=== PATIENT | female | born 1945 ===

== ENCOUNTER 2020-09-01 11:14 | Observation (INO) ==
[~2020-09-01 11:14] MED LIST: Buffered Lidocaine 1% SYRIN 1 ml INTRADERM ONE; Dexamethasone IV 4 MG/ML VIAL 1 ml VIAL ONE; Ketamine HCL 50 mg/ml 10 ml VIAL (500 MG) ONE; Lactated Ringers 1000 ml BAG 1,000 ML IV SCH; Lidocaine 2% PF 5 ML VIAL ONE; Midazolam 2 mg/2 ml VIAL 1 mg/ml 2 ml VIAL (2 mg) ONE; Ondansetron 4 mg VIAL 2 MG/ML 2 ml VIAL ONE; fentaNYL 100 mcg/2 ml 50 MCG/ML VIAL ONE
[2020-09-01] MEDS ORDERED: Lidocaine 1% MPF 5 ML VIAL ONE ×2 (11:22→12:11)
[2020-09-01] MEDS ORDERED: Buffered Lidocaine 1% SYRIN 1 ml INTRADERM ONE (11:38)
[2020-09-01] MEDS ORDERED: Clindamycin 900 MG/D5W BAG 900 MG/50 ML BAG IVPB ONE (11:38)
[2020-09-01] MEDS ORDERED: Propofol 10 MG/ML 20 ML BTL ONE ×4 (12:03→16:02)
[2020-09-01] MEDS ORDERED: Lactulose 30 ml UDC PO PRN (12:20)
[2020-09-01] MEDS ORDERED: diPHENhydraMINE 25 mg TAB PO PRN (12:20)
[2020-09-01] MEDS ORDERED: Morphine 2 MG/ML SYRINGE IV PRN (12:20)
[2020-09-01] MEDS ORDERED: diPHENhydraMINE IV 50 MG/ML 1 ml VIAL (BENADRYL) IV PRN (12:20)
[2020-09-01] MEDS ORDERED: Ondansetron 4 mg VIAL 2 MG/ML 2 ml VIAL IV PRN ×2 (12:20→15:21)
[2020-09-01] MEDS ORDERED: Ondansetron ODT 4 mg TAB 4 MG TAB PO PRN (12:20)
[2020-09-01 12:25] LABS: INR 0.98 (0.82-1.09)
[2020-09-01] MEDS ORDERED: Lactated Ringers 1000 ml BAG 1,000 ML IV SCH (13:00)
[2020-09-01] MEDS ORDERED: Dexamethasone IV 4 MG/ML VIAL 1 ml VIAL ONE (13:05)
[2020-09-01] MEDS ORDERED: Bupivacaine 0.5% SDV PF 30ML VIAL ONE (13:06)
[2020-09-01] MEDS ORDERED: Naloxone 0.4 mg VIAL 0.4 mg/ml 1 ml VIAL IV PRN (15:21)
[2020-09-01] MEDS ORDERED: fentaNYL 100 mcg/2 ml 50 MCG/ML VIAL ONE (17:52)
[2020-09-01] MEDS: fentaNYL 100 mcg/2 ml 50 MCG/ML VIAL IV PRN ×3 (17:54→18:11)
[2020-09-01] MEDS ORDERED: PTO: Progesterone 100 mg CAP (NF) PO SCH (18:00)
[2020-09-01] MEDS ORDERED: Enoxaparin 40 MG/0.4 ML SYR SUBCUT SCH (21:00)
[2020-09-01] MEDS ORDERED: Clindamycin 600 MG/D5W BAG 600 MG/50 ML BAG IV SCH (22:00)
[2020-09-01] MEDS: Enoxaparin 40 MG/0.4 ML SYR SUBCUT SCH (22:11)
[2020-09-01] MEDS: CMCS: Estradiol 1 mg TAB (NF) PO SCH (23:02)
[2020-09-01] MEDS: PTO: Progesterone 100 mg CAP (NF) PO SCH (23:06)
[2020-09-01] MEDS: Vancomycin 1000 MG in NS 0.9% 250 ML IVPB SCH (23:07)
[2020-09-01] MEDS: Mometasone/Formoter 200/5 MDI INH SCH (23:47)
[2020-09-02] MEDS ORDERED: Polyethylene Glycol 3350 17 GM PACKET PO PRN (00:01)
[2020-09-02 06:36] LABS: Hematocrit 38 % (35-47); Hemoglobin 13.1 g/dL (12.0-16.0); Mean Platelet Volume 8.1 fL (7.4-10.4); Platelet Count 216 10^3/uL (150-450)
[2020-09-02 06:54] LABS: BUN/Creatinine Ratio 19.7 (8-20); Calcium 9.4 mg/dL (8.6-10.3); EGFR African American 89.3 (>60); EGFR Non-African American 73.8 (>60); Potassium 4.8 mmol/L (3.5-5.0)
[2020-09-02] MEDS: Mometasone/Formoter 200/5 MDI INH SCH (07:08)
[2020-09-02] MEDS: Vitamin THERAPEUTIC TAB PO SCH (07:47)
[2020-09-02] MEDS: Enoxaparin 40 MG/0.4 ML SYR SUBCUT SCH ×2 (07:59→20:42)
[2020-09-02] MEDS: PTO:Fluticas/Salmet 230/21 HFA(NF) MDI INH SCH ×2 (08:22→19:24)
[2020-09-02] MEDS: Vancomycin 1000 MG in NS 0.9% 250 ML IVPB SCH (09:42)
[2020-09-02] MEDS ORDERED: Warfarin DAILY REMINDER **NOTE FOLLOW UP SCH (17:00)
[2020-09-02] MEDS: CMCS: Estradiol 1 mg TAB (NF) PO SCH (18:14)
[2020-09-02] MEDS: PTO: Progesterone 100 mg CAP (NF) PO SCH (18:16)
[2020-09-02 20:04] LABS: INR 1.05 (0.82-1.09)
[2020-09-03 04:46] LABS: Hematocrit 36 % (35-47); Hemoglobin 12.5 g/dL (12.0-16.0); Mean Platelet Volume 7.4 fL (7.4-10.4); Platelet Count 212 10^3/uL (150-450)
[2020-09-03] MEDS: Vitamin THERAPEUTIC TAB PO SCH (09:09)
[2020-09-03] MEDS: Enoxaparin 40 MG/0.4 ML SYR SUBCUT SCH (09:10)
[2020-09-03] MEDS: PTO:Fluticas/Salmet 230/21 HFA(NF) MDI INH SCH (09:49)
[2020-09-03 11:11] VITALS: BP 152/60
== END 2020-09-03 14:30 | disposition home or self-care (01) ==
LOC: OR 11:14 → SSU 11:14
PROVIDERS: ADMIT Orthopaedic Surgery Adult Reconstructive Orthopaedic Surgery; ATTEND Orthopaedic Surgery Adult Reconstructive Orthopaedic Surgery